=== PATIENT | male | born 1960 ===

== ENCOUNTER 2018-07-12 22:13 | Inpatient (IN) | payer OTHER ==
[~2018-07-12] VITALS: Ht 182.9 cm; Wt 88.5 kg
[2018-07-21] MEDS ORDERED: ULTRACET PO (08:50)
[2018-07-21] MEDS ORDERED: INTESTINEX680 M1 PO (08:50)
[2018-07-21] MEDS ORDERED: KETO10TA2 PO (08:51)
== END 2018-07-21 12:51 | disposition home or self-care (01) | DRG 342 ==
LOC: ER → MEDI 22:50
PROVIDERS: ADMIT Surgery
PROC: 02HV33Z Insertion of Infusion Device into Superior Vena Cava, Percutaneous Approach (ICD-10-PCS; 2018-07-15)
PROC: 0DBH8ZX Excision of Cecum, Via Natural or Artificial Opening Endoscopic, Diagnostic (ICD-10-PCS; 2018-07-18)
PROC: BW21ZZZ Computerized Tomography (CT Scan) of Abdomen and Pelvis (ICD-10-PCS; 2018-07-19)
PROC: 0DTJ4ZZ Resection of Appendix, Percutaneous Endoscopic Approach (ICD-10-PCS; principal; 2018-07-20 10:00)
DX: K35.890 Other acute appendicitis without perforation or gangrene (principal); K50.00 Crohn's disease of small intestine without complications; F41.8 Other specified anxiety disorders; F32.89 Other specified depressive episodes

== ENCOUNTER 2020-05-14 | Outpatient (CLI) | payer OTHER ==
[~2020-05-14] MED LIST: INTESTINEX680 M1 PO; KETO10TA2 PO; ULTRACET PO
== END 2020-05-14 16:59 | disposition home or self-care (01) ==
LOC: PPH VACUNA
DX: Z23 Encounter for immunization (principal)